=== PATIENT | male | born 1985 | race Caucasian/White ===

== ENCOUNTER 2019-02-05 07:13 | Emergency (ER) | payer OTHER ==
[2019-02-05 07:20] VITALS: BMI 27.1
--- NOTE | 2019-02-05 07:39 | PDOC ---
*Physical Exam - Vital Signs Last Vital Signs Temp Pulse Resp BP Pulse Ox 97.5 F L 78 16 121/77 97 02/05/19 07:17 02/05/19 07:17 02/05/19 07:17 02/05/19 07:17 02/05/19 07:17 ED Treatment Course - LABORATORY CBC & Chemistry Diagram: 02/05/19 08:39 02/05/19 08:39 Medical Decision Making - Medical Decision Making 02/05/19 07:39 Pt seen by Midlevel Provider under my direct supervision Ancillary studies reviewed I agree with plan by BRYANT Snyder *DC/Admit/Observation/Transfer Diagnosis at time of Disposition: Elevated lipase, Alcohol use - Discharge Dispostion Disposition: HOME Condition at time of disposition: Improved - Referrals - Patient Instructions Printed Discharge Instructions: DI for Alcohol Abuse Additional Instructions: Follow a clear liquid diet today and tomorrow eat a bland diet. Also follow up with primary care doctor in the next few weeks to review labs. If your symptoms get worse including vomiting severe abdominal pain, or fever please return to the emergency room immediately - Post Discharge Activity Forms/Work/School Notes: Back to Work
[2019-02-05] MEDS ORDERED: SODIUM CHLORIDE 1,000 ML IV STA (07:42)
[2019-02-05] MEDS ORDERED: ONDANSETRON 4 MG/2 ML VIAL IVPUSH ONE (07:42)
[2019-02-05] MEDS ORDERED: KETOROLAC TROMETHAMINE 30 MG/1 ML VIAL IVPUSH ONE (07:42)
--- NOTE | 2019-02-05 08:18 | PDOC ---
History of Present Illness - General Chief Complaint: Pain, Acute Stated Complaint: R ABDOMINAL PAIN Time Seen by Provider: 02/05/19 07:36 History Source: Patient Exam Limitations: No Limitations - History of Present Illness Travel History: No Initial Comments: 02/05/19 08:24 33 y/o male presents to ED with c/o ruq sharp burning since 4 am this am. Pt states was drinking last night and was told to stop drinking due to fatty liver. Pt denies fever, cp, or SOB. Pt does complain of nausea without vomiting or diarrhea. Pt otherwise denies med hx, recent travel, or illness. Timing/Duration: reports: constant Quality: reports: moderate, sharpness Abdominal Pain Onset Location: reports: RUQ Pain Radiation: denies: no radiation Aggravating Factors: worse with: None Alleviating Factors: worse with: None Past History - Travel Traveled outside of the country in the last 30 days: No - Past Medical History Allergies/Adverse Reactions: Allergies Allergy/AdvReac Type Severity Reaction Status Date / Time No Known Allergies Allergy Verified 02/05/19 07:20 Home Medications: Ambulatory Orders NK [No Known Home Medication] 04/11/15 Anemia: No Asthma: No Cancer: No Cardiac Disorders: No CVA: No COPD: No CHF: No Dementia: No Diabetes: Yes (borderline) GI Disorders: No Disorders: No HTN: No Hypercholesterolemia: Yes Liver Disease: Yes (LIVER ENZYMES ELEVATED) Seizures: No Thyroid Disease: No - Suicide/Smoking/Psychosocial Hx Smoking History: Current every day smoker Have you smoked in the past 12 months: No Information on smoking cessation initiated: No Hx Alcohol Use: Yes Drug/Substance Use Hx: Yes Substance Use Type: Alcohol, Marijuana Hx Substance Use Treatment: No Patient Lives Alone: No Lives with/in: spouse/SO Review of Systems - Review of Systems Able to Perform ROS?: Yes Constitutional: No: Symptoms Reported HEENTM: No: Symptoms Reported Respiratory: No: Symptoms reported Cardiac (ROS): No: Symptoms Reported ABD/GI: Yes: Nausea, Abdominal cramping. No: Constipated, Diarrhea : No: Symptoms Reported Musculoskeletal: No: Symptoms Reported Integumentary: No: Symptoms Reported Neurological: No: Symptoms reported Hematologic/Lymphatic: No: Symptoms Reported *Physical Exam - Vital Signs Last Vital Signs Temp Pulse Resp BP Pulse Ox 97.5 F L 78 16 121/77 97 02/05/19 07:17 02/05/19 07:17 02/05/19 07:17 02/05/19 07:17 02/05/19 07:17 - Physical Exam General Appearance: Yes: Nourished, Appropriately Dressed. No: Apparent Distress HEENT: negative: Pale Conjunctivae Neck: positive: Supple Respiratory/Chest: positive: Lungs Clear, Normal Breath Sounds. negative: Respiratory Distress, Accessory Muscle Use Cardiovascular: positive: Regular Rhythm, Regular Rate. negative: Murmur Gastrointestinal/Abdominal: positive: Soft, Tenderness (ruq) Musculoskeletal: negative: CVA Tenderness Extremity: positive: Normal Capillary Refill Integumentary: positive: Normal Color, Warm, Moist Neurologic: positive: Motor Strength 5/5 (ambulatory) ED Treatment Course - LABORATORY CBC & Chemistry Diagram: 02/05/19 08:39 02/05/19 08:39 Medical Decision Making - Medical Decision Making 02/05/19 08:00 CC: RUQ pain with nausesa since 4 am, Hx fatty liver and frequent alcohol intake Exam: RUQ tenderness, no cva tenderness, vss Plan: labs, urine, ivf, zofran, and toradol ordered. Will consider imaging 02/05/19 11:32 Laboratory Tests 02/05/19 02/05/19 02/05/19 08:39 08:39 08:39 WBC 5.0 Hgb 14.9 Hct 44.9 Plt Count 160 Sodium 142 Potassium 4.0 Chloride 108 H Carbon Dioxide 24 Anion Gap 10 BUN 12.7 Creatinine 1.0 Random Glucose 102 Calcium 8.9 Magnesium 2.5 H Total Bilirubin 0.2 AST 19 ALT 24 Alkaline Phosphatase 63 Total Protein 7.7 Albumin 4.5 Lipase 609 H Urine pH Urine Ketones Urine Blood Urine Nitrite Urine Bilirubin Ur Leukocyte Esterase 02/05/19 09:42 WBC Hgb Hct Plt Count Sodium Potassium Chloride Carbon Dioxide Anion Gap BUN Creatinine Random Glucose Calcium Magnesium Total Bilirubin AST ALT Alkaline Phosphatase Total Protein Albumin Lipase Urine pH 5.5 Urine Ketones 1+ H Urine Blood Negative Urine Nitrite Negative Urine Bilirubin Negative Ur Leukocyte Esterase Negative Pt states feeling better. GB u/s shows Nonvisualization of the pancreas likely due to overlying bile gas. Slightly coarse echotexture of the liver. Slightly hyperechoic lesion in the right hepatic lobe measuring 1.5 cm that systemically may represent an cavernous angioma. Partially distended gallbladder with mild thickening of its wall without gross intraluminal stones. Patient understands he needs to stop drinking and drink plenty of clear liquids today and tomorrow he may have a bland diet. Patient also understands he needs to follow up with his primary care doctor to evaluate improvement of numbers. If symptoms are not to improve patient understands to come back to the emergency room for further workup 02/05/19 11:37 *DC/Admit/Observation/Transfer Diagnosis at time of Disposition: Elevated lipase, Alcohol use - Discharge Dispostion Disposition: HOME Condition at time of disposition: Improved - Referrals - Patient Instructions Printed Discharge Instructions: DI for Alcohol Abuse Additional Instructions: Follow a clear liquid diet today and tomorrow eat a bland diet. Also follow up with primary care doctor in the next few weeks to review labs. If your symptoms get worse including vomiting severe abdominal pain, or fever please return to the emergency room immediately - Post Discharge Activity Forms/Work/School Notes: Back to Work
[2019-02-05] MEDS ORDERED: ONDANSETRON 4 MG/2 ML VIAL ONE (08:30)
[2019-02-05] MEDS ORDERED: KETOROLAC TROMETHAMINE 30 MG/1 ML VIAL ONE (08:30)
[2019-02-05 09:03] LABS: BASO % 0.2 % (0-2.0); EOS % 0.9 % (0-4.5); HEMATOCRIT 44.9 % (35.4-49); HEMOGLOBIN 14.9 GM/dL (11.7-16.9); LYMPH % 30.5 % (8-40); MCH 28.5 pg (25.7-33.7); MCHC 33.2 g/dl (32.0-35.9); MEAN CELL VOLUME 85.9 fl (80-96); MEAN PLT VOLUME 8.6 fl (7.5-11.1); MONO % 7.9 % (3.8-10.2); NEUT % 60.5 % (42.8-82.8); PLATELET COUNT 160 K/MM3 (134-434); RBC 5.23 M/mm3 (4.00-5.60); RDW 13.7 % (11.9-15.9)
[2019-02-05 09:24] LABS: MAGNESIUM 2.5 mg/dL (1.8-2.4)
[2019-02-05 09:29] LABS: ALBUMIN 4.5 g/dl (3.4-5.0); BILIRUBIN,TOTAL 0.2 mg/dL (0.2-1); BLOOD UREA NITROGEN 12.7 mg/dL (7-18); CALCIUM 8.9 mg/dL (8.5-10.1); TOT PROT 7.7 g/dl (6.4-8.2)
[2019-02-05 10:32] LABS: PH,URINE 5.5 (5.0-8.0); URINE APPEARANCE Clear; URINE BILIRUBIN Negative (NEGATIVE); URINE COLOR Yellow; URINE GLUCOSE (UA) Negative (NEGATIVE); URINE KETONE 1+ (NEGATIVE); URINE LEUK ESTERASE Negative (NEGATIVE); URINE NITRITE Negative (NEGATIVE); URINE PROTEIN Negative (NEGATIVE); URINE UROBILINOGEN 0.2 mg/dL (0.2-1.0)
[2019-02-05 11:12] VITALS: BP 118/72; PULSE 84; TEMP 98.3
== END 2019-02-05 11:48 | disposition home or self-care (01) ==
LOC: JER 07:13
PROC: 3E0333Z Introduction of Anti-inflammatory into Peripheral Vein, Percutaneous Approach (ICD-10-PCS; principal; 2019-02-05)
PROC: 3E0337Z Introduction of Electrolytic and Water Balance Substance into Peripheral Vein, Percutaneous Approach (ICD-10-PCS; 2019-02-05)
PROC: 3E033GC Introduction of Other Therapeutic Substance into Peripheral Vein, Percutaneous Approach (ICD-10-PCS; 2019-02-05)
DX: R10.11 Right upper quadrant pain (principal); R74.8 Abnormal levels of other serum enzymes; F17.210 Nicotine dependence, cigarettes, uncomplicated; R73.03 Prediabetes; K76.0 Fatty (change of) liver, not elsewhere classified; F10.99 Alcohol use, unspecified with unspecified alcohol-induced disorder
CPT/HCPCS: 36415; 76705-TC; 80053; 81003; 83690; 83735; 85025; 87077; 87086; 99283-25; J7030